=== PATIENT | female | born 1980 | race Caucasian/White ===

== ENCOUNTER 2018-09-17 16:00 | Inpatient (IN) | payer MEDICAID, SELFPAY ==
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
[2018-09-17 17:58] LABS: HCT 37.9 % (36.0-46.0); HGB 12.8 g/dL (12.0-15.5); Mean Corp. HGB Concentration 33.8 g/dL (32.0-36.0); Mean Corpuscular Hemoglobin 28.3 pg (27.0-33.0); Mean Corpuscular Volume 83.7 fL (80-95); Mean Platelet Volume 9.8 fL (8.0-11.0); Platelet Count 259 x1000/uL (130-400); RBC 4.53 m/cumm (4.00-5.20); RBC Distribution Width 13.2 % (11.7-14.6); White Blood Cell Count 11.65 k/cumm (4.4-10.8)
[2018-09-17] MEDS: Betamet Acet/Betamet Na Ph Inj. 30 MG/5 ML 12 MG IM (18:22)
[2018-09-17] MEDS: miSOPROStol 50 MCG TAB PO (19:26)
[2018-09-18] MEDS: ceFAZolin 2,000 MG in Normal Saline 100 ML 200 MG IVPB (00:36)
[2018-09-18] MEDS: Normal Saline Flush 10 ML SYR IVP ×2 (00:36→03:11)
[2018-09-18] MEDS: Lidocaine 1% Pres-Free 5 ML VIAL (06:13)
[2018-09-18 12:48] LABS: HGB 11.2 g/dL (12.0-15.5)
[2018-09-18] MEDS: Oxytocin 10 UNITS/ML VIAL IM (13:20)
[2018-09-18] MEDS: miSOPROStol 200 MCG TAB 400 MCG SL ×2 (13:41→14:00)
[2018-09-18] MEDS: Tranexamic Acid 1,000 MG/10 ML VIAL 1000 MG (14:15)
[2018-09-18] MEDS: Normal Saline 50 ML (14:31)
[2018-09-18 15:36] LABS: HGB 9.5 g/dL (12.0-15.5); Mean Corp. HGB Concentration 33.9 g/dL (32.0-36.0); Mean Corpuscular Hemoglobin 28.5 pg (27.0-33.0); Mean Corpuscular Volume 84.1 fL (80-95); Platelet Count 280 x1000/uL (130-400); RBC 3.33 m/cumm (4.00-5.20); RBC Distribution Width 12.9 % (11.7-14.6); White Blood Cell Count 19.72 k/cumm (4.4-10.8)
[2018-09-18 15:46] LABS: PTT Activated 23.1 sec (21.0-31.4); Prothrombin Time 9.6 sec (9.3-11.0)
[2018-09-18] MEDS: Lactated Ringers 500 ML IV (16:15)
[2018-09-18] MEDS: Lactated Ringers 1,000 ML 150 ML IV (17:32)
[2018-09-18] MEDS: Hamamelis Leaf/Glycerin 100 EACH BOX PR (18:10)
[2018-09-18] MEDS: Docusate Sodium 100 MG CAP PO (20:35)
[2018-09-18] MEDS: Ferrous Sulfate 325 MG TAB PO (20:35)
[2018-09-19 07:24] LABS: HCT 26.4 % (36.0-46.0); HGB 8.7 g/dL (12.0-15.5); Mean Corpuscular Hemoglobin 27.9 pg (27.0-33.0); Mean Corpuscular Volume 84.6 fL (80-95); Mean Platelet Volume 9.5 fL (8.0-11.0); Platelet Count 258 x1000/uL (130-400); RBC 3.12 m/cumm (4.00-5.20); RBC Distribution Width 12.9 % (11.7-14.6); White Blood Cell Count 12.35 k/cumm (4.4-10.8)
[2018-09-19] MEDS: Ferrous Sulfate 325 MG TAB PO (09:00)
== END 2018-09-19 16:00 | disposition home or self-care (01) | DRG 806 ==
PROVIDERS: Admitting Provider Family Medicine; PCP Family Medicine; Visit Provider Family Medicine
DX: O72.1 Other immediate postpartum hemorrhage (principal); D62 Acute posthemorrhagic anemia; Z37.0 Single live birth; O90.81 Anemia of the puerperium; O99.824 Streptococcus B carrier state complicating childbirth; Z3A.37 37 weeks gestation of pregnancy; O99.334 Smoking (tobacco) complicating childbirth; F17.210 Nicotine dependence, cigarettes, uncomplicated; O99.344 Other mental disorders complicating childbirth; F32.9 Major depressive disorder, single episode, unspecified; O99.214 Obesity complicating childbirth
CPT/HCPCS: 36415; 85027; 86850; 86900; 86901; 99223; 59025; 59200; 85014; 85018; 85610; 85730; J0690; J0702; J2590; J3490

== ENCOUNTER 2024-04-11 18:35 | Inpatient (IN) | payer MEDICAID, SELFPAY ==
[2024-04-11] VITALS (13 sets, daily range): BP systolic 112–135; BP diastolic 58–81; PULSE 65–84; RESP 16–20; TEMP 36.6–36.8; O2SAT 99
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
[2024-04-11] MEDS: VANCOMYCIN 2,000 MG in Normal Saline 500 ML 250 MG IVPB (19:36)
[2024-04-11] MEDS: Normal Saline Flush 10 ML SYR IVP (19:37)
[2024-04-11 19:56] LABS: HCT 40.6 % (36.0-46.0); HGB 13.3 g/dL (11.2-15.7); MCH 27.4 pg (27.0-33.0); MCHC 32.8 % (32.0-36.0); MCV 84 fL (80-95); MPV 9.8 fL (8.0-11.0); Platelet Count 262 10^3/uL (130-400); RBC 4.85 10^6/uL (3.93-5.22); RDW-SD 39.8 fL; WBC 12.88 10^3/uL (4.4-10.8)
--- NOTE | 2024-04-11 20:34 | W.OBDELIVERY ---
Date of service: 04/11/24 Time of Service: 20:34 OB Labor/ Delivery Information Providers Doctor: Ronni Salvador Nurse: Bernice Ken Nurse: Polina Mendoza Other: bambi roman MD Labor/Delivery Information Number of Babies in Womb: 1 Steroids Given: None Reason Steroids Not Administered: N/A Group Beta Strep: Positive Antibiotics Administered: Yes Number of Doses of Antibiotics: 1 (partial dose of vanco) Rubella Status: Equivocal Blood Type: A+ Varicella Immunity: Not Tested Born En Route: No Maternal Complications: None Shoulder Dystocia: No Stages of Labor Onset of Labor Date: 04/11/24 Onset of Labor Time: 14:00 Complete Dilatation Date: 04/11/24 Complete Dilatation Time: 20:00 Labor - Stage 1 Duration: 6 hours and 0 minutes ROM Baby A: 04/11/24 ROM Baby A: 17:30 Infant Delivery Date-Baby A: 04/11/24 Delivery Time-Baby A: 20:16 Labor Stage 2 Duration: 16 minutes Placenta Delivery Date-Baby A: 04/11/24 Placenta Delivery Time-Baby A: 20:23 Labor-Stage 3 Duration: 7 minutes Total Length of Labor-Baby A: 6 hours and 16 minutes Placenta Status: Delivered Baby A Infant Gender: Female Gestational Age in Weeks/Days: 40 Weeks and 0 Days Score-1 Minute Interval(Baby A) Heart Rate-1 minute: 100 BPM or Greater Respiratory Effort- 1 minute: Spontaneous/Strong Cry Muscle Tone-1 minute: Active Movement Reflex Response-1 minute: Prompt Response Color-1 minute: Bluish Hands or Feet Total Score-1 minute: 9 Score-5 Minute Interval(Baby A) Heart Rate- 5 minute: 100 BPM or Greater Respiratory Effort-5 minute: Spontaneous/Strong Cry Muscle Tone-5 minute: Active Movement Reflex Response-5 minute: Prompt Response Color-5 minute: Bluish Hands or Feet Total Score- 5 minute: 9
[2024-04-11] MEDS: Oxytocin 10 UNITS/ML VIAL (21:51)
[2024-04-12 00:20] VITALS: BP 109/74; PULSE 70; RESP 16; TEMP 36.5
[2024-04-12 06:37] LABS: HGB 12.6 g/dL (11.2-15.7); MCH 27.4 pg (27.0-33.0); MCHC 33.2 % (32.0-36.0); MCV 83 fL (80-95); MPV 9.9 fL (8.0-11.0); Platelet Count 247 10^3/uL (130-400); RDW 12.9 % (11.7-14.6); RDW-SD 38.7 fL; WBC 13.65 10^3/uL (4.4-10.8)
[2024-04-12 08:10] VITALS: BP 123/80; PULSE 66; RESP 16; TEMP 36.7; O2SAT 98
--- NOTE | 2024-04-12 19:12 | OBPPV_ITS ---
Date of service: 04/12/24 Time of Service: 19:12 Subjective Subjective Patient comments: No complaints, Pain well controlled and Tolerating diet [place] baby status: Doing well, Nursing well and Strong Bonding Observed [place] feeding status: Exclusively breast feeding Narrative: Plan: PPD1; doing well following uncomplicated spontaneous delivery. Pain well- controlled, ambulating well. Mom and baby recovering well. -Mom will stay overnight for monitoring given maternal GBS+ status -continue pain management with ibuprofen PRN; has not needed to date -nicorette patch PRN -stool softeners PRN -regular diet, encourage ambulation -Plan on likely discharge with tomorrow AM Exam Physical Exam Vital signs: Temp Pulse Resp BP Pulse Ox 36.7 C 66 16 123/80 98 04/12/24 08:10 04/12/24 08:10 04/12/24 08:10 04/12/24 08:10 04/12/24 08:10 Vital Signs Reviewed: Yes Constitutional Constitutional: no acute distress HEENT Exam HEENT Exam: Normal Neck Exam Neck Exam: Normal Respiratory Exam Respiratory Exam: Normal Cardiovascular Exam Cardiovascular Exam: Normal Detail Cardiovascular Exam Comments: RRR, no MRG. Extremities WWP; no pain/swelling of calves. Abdominal Exam Comments: Soft, fundus firm, below umbilicus. Appropriately tender on exam. Fundal Exam Fundus: Below Umbilicus and Firm Rectal Exam Rectal Exam: Not Done Extremities Exam Extremity Exam: Normal and Normal Capillary Refill Comment: No calf swelling or tenderness Back/Spine/Pelvis Exam Back Exam: Normal Skin Exam Skin Exam: Normal Neurological Exam Neurological Exam: Normal Psychiatric Exam Psychiatric Exam: Normal Results Hemoglobin/Hematocrit: Hgb 13.3 g/dL (11.2-15.7) 04/11/24 19:44 Hct 40.6 % (36.0-46.0) 04/11/24 19:44 Abnormal Lab Findings: Abnormal Labs 04/11/24 04/11/24 06:26 19:44 WBC 13.65 H 12.88 H
[2024-04-12 21:34] VITALS: BP 119/70; PULSE 66; RESP 16; TEMP 36.6; O2SAT 97
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
[2024-04-13 08:00] VITALS: BP 131/86; PULSE 66; RESP 12; TEMP 36.8
== END 2024-04-13 13:00 | disposition home or self-care (01) | DRG 807 ==
LOC: OBS 18:39
PROVIDERS: Admitting Provider Family Medicine; PCP Family Medicine; Visit Provider Family Medicine
DX: O99.824 Streptococcus B carrier state complicating childbirth (principal); Z37.0 Single live birth; Z3A.40 40 weeks gestation of pregnancy; O99.334 Smoking (tobacco) complicating childbirth; F17.210 Nicotine dependence, cigarettes, uncomplicated; O99.284 Endocrine, nutritional and metabolic diseases complicating childbirth; E28.2 Polycystic ovarian syndrome; O99.214 Obesity complicating childbirth; E66.9 Obesity, unspecified; O99.354 Diseases of the nervous system complicating childbirth; O99.62 Diseases of the digestive system complicating childbirth; O99.72 Diseases of the skin and subcutaneous tissue complicating childbirth; O99.344 Other mental disorders complicating childbirth; F41.8 Other specified anxiety disorders; O70.9 Perineal laceration during delivery, unspecified; F43.10 Post-traumatic stress disorder, unspecified; G43.909 Migraine, unspecified, not intractable, without status migrainosus; G62.9 Polyneuropathy, unspecified; G25.81 Restless legs syndrome; L73.2 Hidradenitis suppurativa; L30.9 Dermatitis, unspecified; K58.9 Irritable bowel syndrome, unspecified
CPT/HCPCS: 00123; 36415; 85027; 86850; 86900; 86901; J2590; J3370